=== PATIENT | female | born 1980 | race Caucasian/White ===

== ENCOUNTER 2021-01-02 19:57 | Emergency (ER) | payer OTHER ==
[~2021-01-02] VITALS: Ht 157.5 cm; Wt 56.2 kg
[2021-01-02] MEDS ORDERED: LEVOTHYROXINE25 MCG (20:02)
[2021-01-03] MEDS ORDERED: INTESTINEX680 M1 PO (04:21)
[2021-01-03] MEDS ORDERED: MIRALAX510 GM PO (04:21)
[2021-01-03] MEDS ORDERED: LEVSIN/SL0.125 MG SL (04:21)
== END 2021-01-03 04:33 | disposition home or self-care (01) ==
LOC: ER 19:57
DX: K57.30 Diverticulosis of large intestine without perforation or abscess without bleeding (principal); K59.09 Other constipation; Z97.5 Presence of (intrauterine) contraceptive device
CPT/HCPCS: 74177; 76700; 76856; Q9965